=== PATIENT | female | born 1965 | race Caucasian/White ===

== ENCOUNTER → 2020-04-18 13:38 | Outpatient (CLI) | payer OTHER, SELFPAY ==
--- NOTE | ~2020-04-18 | MM_ITS ---
EXAMINATION: MM screening leon BI w yen HISTORY: Screening TECHNIQUE: Craniocaudal and mediolateral oblique 3-D tomosynthesis images were obtained and synthetic 2-D images were generated. CAD analysis was submitted and interpreted. COMPARISON: Comparison to multiple prior studies sequentially, with oldest reviewed study dated 01/23. BREAST PARENCHYMAL COMPOSITION: The breasts are heterogeneously dense, which may obscure small masses . FINDINGS: There is no evidence of suspicious mass, calcification, or architectural distortion to sugg est malignancy in either breast. There has been no suspicious interval change. IMPRESSION: 1. No mammographic evidence of malignancy. 2. Recommend routine screening mammography in one year. BI-RADS Category 1: Negative Reviewed, dictated and finalized at location A.
== END ==
PROVIDERS: PCP Emergency Medicine; Visit Provider Obstetrics & Gynecology
DX: Z12.31 Encounter for screening mammogram for malignant neoplasm of breast (principal)
CPT/HCPCS: 77063; 77067

== ENCOUNTER 2020-06-18 06:54 | Outpatient (NON) | payer OTHER, SELFPAY ==
[2020-06-19 16:06] LABS: SARS-CoV-2 RNA PCR Negative
== END 2020-06-18 06:55 ==
PROVIDERS: PCP Emergency Medicine; Visit Provider Emergency Medicine
DX: J02.9 Acute pharyngitis, unspecified (principal); R68.83 Chills (without fever); Z20.828 Contact with and (suspected) exposure to other viral communicable diseases
CPT/HCPCS: 87635; C9803; U0003

== ENCOUNTER → 2020-11-24 09:15 | Outpatient (CLI) | payer OTHER, SELFPAY ==
[2020-11-24 18:48] LABS: SARS-CoV-2 RNA PCR Negative
== END ==
PROVIDERS: PCP Emergency Medicine; Visit Provider Emergency Medicine
DX: R05 Cough (principal); R50.9 Fever, unspecified; R51.9 Headache, unspecified; R52 Pain, unspecified; Z20.822 Contact with and (suspected) exposure to COVID-19
CPT/HCPCS: C9803; U0003; U0005

== ENCOUNTER → 2021-04-20 12:13 | Outpatient (CLI) | payer OTHER, SELFPAY ==
--- NOTE | ~2021-04-20 | DEXA_ITS ---
Bone Density Report Name: Kecia Baca Age: 56 Sex: Female Ethnicity: White Date of : 1965 Indication: postmenopausal; screening for osteoporosis; Referring Provider: Anam, Sybil Cole Study: Bone densitometry was performed. Exam Date: April 20, 2021 Accession number: [id number] Bone Density: Region BMD T-score Z-score Classification AP Spine (L1-L4) 0.901 -1.3 0.0 Osteopenia Femoral Neck (Left) 0.575 -2.5 -1.3 Osteoporosis Total Hip (Left) 0.712 -1.9 -1.0 Osteopenia Femoral Neck (Right) 0.583 -2.4 -1.2 Osteopenia Total Hip (Right) 0.716 -1.9 -1.0 Osteopenia Total Hip Mean 0.714 -1.9 -1.0 Osteopenia World Health Organization criteria for BMD impression classify patients as: Normal (T-score at or above -1.0), Osteopenia (T-score between -1.0 and -2.5), or Osteoporosis (T-score at or below -2.5). 10-year Fracture Risk: FRAX not reported because: Some T-score for Spine Total or Hip Total or Femoral Neck at or below -2.5 Clinical Information Provided by Patient: Patient maximum height was 65.0 Menopause Age: 51 Drinks caffeinated beverages Onset of menses at age 11 Number of children 3 Impression: The patient has osteoporosis, based on the Left Femoral Neck T-score. Discussion: INCREASED RISK OF FRACTURE. BONE DENSITY IS UNDESIRABLY LOW AT ONE OR MORE SKELETAL SITES, CONSISTENT WITH POSTMENOPAUSAL OSTEOPOROSIS. This patient's lowest T-score meets the World Health Organization's (WHO) criteria for osteoporosis at one or more sites (T-score -2.5 or below). In untreated patients, the risk of osteoporotic fracture increases approximately two-fold for each 1.0 SD decrease in T-score. Low bone density is not the only risk factor for fracture; also consider factors such as patient's age, frailty or poor health, risk of falling, risk of injury, previous osteoporotic fracture, family history of osteoporosis, cigarette smoking, low body weight, etc. Not everyone with low bone mineral density has osteoporosis; osteomalacia and other metabolic bone disorders should also be considered. Patients who have osteoporosis should be evaluated for specific diseases and conditions (secondary causes) that may cause or contribute to bone loss. The [place] [employer] of Clinical Endocrinologists (AACE) and National Osteoporosis Foundation (NOF) recommend pharmacologic intervention for all postmenopausal women whose T-score is in this range. The patient should follow a healthful lifestyle (good nutrition with adequate calcium and vitamin D, and appropriate weight-bearing exercise). Follow-Up: Consider a repeat BMD and Vertebral Fracture Assessment (VFA) exam in 2 years or sooner if medically necessary, to reassess this patient's status. Reported by: IRMA on 04/20/2021 1:01:00 PM.
--- NOTE | ~2021-04-20 | MM_ITS ---
EXAMINATION: MM screening leon BI w yen HISTORY: Screening TECHNIQUE: Craniocaudal and mediolateral oblique 3-D tomosynthesis images were obtained and synthetic 2-D images were generated. CAD analysis was submitted and interpreted. COMPARISON: Comparison to multiple prior studies sequentially, with oldest reviewed study dated 12/2014. BREAST PARENCHYMAL COMPOSITION: The breasts are heterogenously dense, which may obscure small masses FINDINGS: There is focal asymmetry in the upper outer quadrant of the right breast, middle third. The left breast is stable without evidence for malignancy. IMPRESSION: 1. Subtle asymmetry upper outer quadrant of the right breast. 2. Additional mammographic views and possible breast ultrasound are recommended. BI-RADS Category 0: Incomplete: Needs additional imaging evaluation. Reviewed, dictated and finalized at location A. IMPRESSION: 1. Subtle asymmetry upper outer quadrant of the right breast. 2. Additional mammographic views and possible breast ultrasound are recommended . BI-RADS Category 0: Incomplete: Needs additional imaging evaluation.
== END ==
PROVIDERS: PCP Emergency Medicine; Visit Provider Nurse Practitioner Obstetrics & Gynecology
DX: Z12.31 Encounter for screening mammogram for malignant neoplasm of breast (principal); Z78.0 Asymptomatic menopausal state; M85.89 Other specified disorders of bone density and structure, multiple sites; M81.0 Age-related osteoporosis without current pathological fracture; R92.8 Other abnormal and inconclusive findings on diagnostic imaging of breast
CPT/HCPCS: 77063; 77067; 77080

== ENCOUNTER → 2021-05-15 09:13 | Outpatient (CLI) | payer OTHER, SELFPAY ==
--- NOTE | ~2021-05-15 | MMUS_ITS ---
EXAMINATION: MM diagnostic leon RT w yen, US breast RT complete HISTORY: Follow-up right breast asymmetry TECHNIQUE: Additional 3-D tomosynthesis images of the right breast were performed and synthetic 2-D i mages were generated. CAD analysis was submitted and interpreted. High resolution complete right angelo st ultrasound was performed. COMPARISON: Comparison to multiple prior studies sequentially, with oldest reviewed study dated 07/30. BREAST PARENCHYMAL COMPOSITION: The breasts are heterogenously dense, which may obscure small masses. FINDINGS: MAMMOGRAPHIC FINDINGS: There are no discrete masses, suspicious clustered calcifications or architectural distortion in the right breast to suggest malignancy. ULTRASOUND: Complete bilateral US of all 4 quadrants of the breasts and retroareolar region was reviewed. At 12:0 0, 3 cm from the nipple, there is a 7 mm cyst. At 11:00, 4 cm from the nipple, there is a hypoechoic mass with slightly irregular margins and antiparallel configuration measuring 5 x 6 x 6 mm. No technology intern al vascularity or significant posterior features. IMPRESSION: 1. Slightly irregular hypoechoic right breast mass at 11:00, 4 cm from the nipple with antiparallel c onfiguration. 2. Ultrasound-guided right breast biopsy recommended. BI-RADS category 4, suspicious findings. Reviewed, dictated and finalized at location A. IMPRESSION: 1. Slightly irregular hypoechoic right breast mass at 11:00, 4 cm from the nipp le with antiparallel configuration. 2. Ultrasound-guided right breast biopsy recommended. BI-RADS category 4, suspicious findings.
== END ==
PROVIDERS: PCP Emergency Medicine; Visit Provider Nurse Practitioner Obstetrics & Gynecology
DX: R92.8 Other abnormal and inconclusive findings on diagnostic imaging of breast (principal)
CPT/HCPCS: 76641; 77061; 77065; G0279

== ENCOUNTER 2021-05-22 09:59 | Outpatient (CLI) | payer OTHER, SELFPAY ==
--- NOTE | ~2021-05-22 | MMUS_ITS ---
EXAMINATION: US GUIDED NEEDLE BIOPSY DATE: 05/22/2021 11:50 DIRECTOR OF EARLY CHILDHOOD INDICATION: 11:00 4 cm from nipple right breast mass. Recent ultrasound demonstrated a 14 mm hypoech oic solid lesion. TECHNIQUE AND FINDINGS: The risks and potential benefits of the procedure were discussed with the patient, and written inform ed consent was obtained. Timeout procedure was performed. After sterile preparation of the right angelo st, 1% lidocaine was utilized for local anesthesia. An initial unsuccessful attempt was made to aspirate the lesion. A 14G spring-loaded biopsy gun needle was advanced to the edge of the region of interest from a media l approach utilizing sonographic guidance. A total of three tissue core samples were obtained throug h the lesion. An Inrad tissue marker clip was then placed at the biopsy site. Hemostasis was achieve d. A sterile bandage was applied. The patient tolerated procedure well and there was no evidence of immediate complication. The patien t was given verbal instructions prior to departing from the department. A two view mammogram was perf ormed to document tissue marker clip placement, revealing a biopsy marker in the upper outer quadrant . The tissue samples were submitted to surgical pathology for histologic analysis. IMPRESSION: 1. Successful ultrasound guided biopsy of 11:00 4 cm from nipple right breast mass with biopsy marke r placement. Please refer to pathology report for histologic analysis. Reviewed, dictated and finalized at Location A. Reviewed, dictated and finalized at location A. CTOR OF EARLY CHILDHOOD IMPRESSION: 1. Successful ultrasound guided biopsy of 11:00 4 cm from nipple right breast mass with biopsy marker placement. Please refer to pathology report for histolo gic analysis.
== END 2021-05-22 10:00 | disposition home or self-care (01) ==
LOC: ANHIMG 10:05
PROVIDERS: PCP Emergency Medicine; Visit Provider Emergency Medicine
DX: N63.11 Unspecified lump in the right breast, upper outer quadrant (principal); N64.89 Other specified disorders of breast; R92.8 Other abnormal and inconclusive findings on diagnostic imaging of breast
CPT/HCPCS: 19083; 88305; 88342

== ENCOUNTER 2022-03-30 10:06 | Outpatient (CLI) | payer OTHER, SELFPAY ==
--- NOTE | ~2022-03-30 | XR_ITS ---
XR chest 2V 03/30/2022 10:27 Indication: Residual effects of Covid Procedure: PA and lateral views of the chest Comparison: No prior studies for comparison. Findings: There is a calcified granuloma in the left mid thorax. Heart size normal. No focal air spac e disease, pulmonary edema, pleural effusion or suspected pneumothorax. No acute osseous abnormality. Impression: 1: No acute cardiopulmonary disease. Reviewed, dictated and finalized at location A. Impression: 1: No acute cardiopulmonary disease.
== END 2022-03-30 10:07 | disposition home or self-care (01) ==
PROVIDERS: PCP Emergency Medicine; Visit Provider Emergency Medicine
DX: R09.89 Other specified symptoms and signs involving the circulatory and respiratory systems (principal)
CPT/HCPCS: 71046

== ENCOUNTER → 2022-04-29 14:26 | Outpatient (CLI) | payer OTHER, SELFPAY ==
--- NOTE | ~2022-04-29 | MM_ITS ---
EXAMINATION: MM screening leon BI w yen HISTORY: Screening TECHNIQUE: Craniocaudal and mediolateral oblique 3-D tomosynthesis images were obtained and synthetic 2-D images were generated. CAD analysis was submitted and interpreted. COMPARISON: Comparison to multiple prior studies sequentially, with oldest reviewed study dated 02/01. BREAST PARENCHYMAL COMPOSITION: The breasts are heterogeneously dense, which may obscure small masses . FINDINGS: There is no evidence of suspicious mass, calcification, or architectural distortion to sugg est malignancy in either breast. There has been no suspicious interval change. IMPRESSION: 1. No mammographic evidence of malignancy. 2. Recommend routine screening mammography in one year. BI-RADS Category 1: Negative Reviewed, dictated and finalized at location A.
== END ==
PROVIDERS: PCP Emergency Medicine; Visit Provider Nurse Practitioner Obstetrics & Gynecology
DX: Z12.31 Encounter for screening mammogram for malignant neoplasm of breast (principal)
CPT/HCPCS: 77063; 77067

== ENCOUNTER 2023-07-08 13:27 | Outpatient (CLI) | payer OTHER, SELFPAY ==
--- NOTE | ~2023-07-08 | DEXA_ITS ---
Bone Density Report Name: JENNIFER MEDELLIN Age: 58 Sex: Female Ethnicity: White Date of : 1965 Indication: postmenopausal; screening for osteoporosis; parental hip fracture; Referring Provider: VAL WHITAKER Study: Bone densitometry was performed. Exam Date: July 08, 2023 Accession number: [id number] Bone Density: Region BMD T-score Z-score Classification AP Spine(L1-L4) 0.914 -1.2 0.2 Osteopenia Femoral Neck (Left) 0.590 -2.3 -1.0 Osteopenia Total Hip (Left) 0.749 -1.6 -0.6 Osteopenia Femoral Neck (Right) 0.542 -2.8 -1.5 Osteoporosis Total Hip (Right) 0.724 -1.8 -0.8 Osteopenia Total Hip Mean 0.737 -1.7 -0.7 Osteopenia World Health Organization criteria for BMD impression classify patients as: Normal (T-score at or above -1.0), Osteopenia (T-score between -1.0 and -2.5), or Osteoporosis (T-score at or below -2.5). 10-year Fracture Risk: FRAX not reported because: Some T-score for Spine Total or Hip Total or Femoral Neck at or below -2.5 Clinical Information Provided by Patient: Parent has had a hip fracture Has used the following medications: Calcium Patient maximum height was 65.0 Menopause Age: 51 Drinks caffeinated beverages Onset of menses at age 10 Number of children 3 Impression: The patient has osteoporosis, based on the Right Femoral Neck T-score. The patient has risk factors, including: parental hip fracture. Discussion: INCREASED RISK OF FRACTURE. BONE DENSITY IS UNDESIRABLY LOW AT ONE OR MORE SKELETAL SITES, CONSISTENT WITH POSTMENOPAUSAL OSTEOPOROSIS. This patient's lowest T-score meets the World Health Organization's (WHO) criteria for osteoporosis at one or more sites (T-score -2.5 or below). In untreated patients, the risk of osteoporotic fracture increases approximately two-fold for each 1.0 SD decrease in T-score. Low bone density is not the only risk factor for fracture; also consider factors such as patient's age, frailty or poor health, risk of falling, risk of injury, previous osteoporotic fracture, family history of osteoporosis, cigarette smoking, low body weight, etc. Not everyone with low bone mineral density has osteoporosis; osteomalacia and other metabolic bone disorders should also be considered. Patients who have osteoporosis should be evaluated for specific diseases and conditions (secondary causes) that may cause or contribute to bone loss. The [place] Association of Clinical Endocrinologists (AACE) and National Osteoporosis Foundation (NOF) recommend pharmacologic intervention for all postmenopausal women whose T-score is in this range. The patient should follow a healthful lifestyle (good nutrition with adequate calcium and vitamin D, and appropriate weight-bearing exercise). Follow-Up: Consider a repeat BMD and Vertebral Fracture Assessment (VFA) exam in 2 years or sooner if medically necessary, to reassess this patient's status.
--- NOTE | ~2023-07-08 | MM_ITS ---
EXAMINATION: MM screening leon BI w yen HISTORY: Screening mammogram TECHNIQUE: Craniocaudal and mediolateral oblique 3-D tomosynthesis images were obtained and synthetic 2-D images were generated. CAD analysis was submitted and interpreted. COMPARISON: 04/29/2022 bilateral screening mammogram 05/22/2021 right ultrasound-guided breast biopsy 05/15/2021 diagnostic right mammogram and complete right breast ultrasound examination 04/20/2021 bilateral screening mammogram BREAST PARENCHYMAL COMPOSITION: The breasts are heterogeneously dense, which may obscure small masses . FINDINGS: Biopsy marker in the upper outer quadrant of the right breast; history of prior benign righ t breast biopsy. There is no evidence of suspicious mass, calcification, or architectural distortion to suggest malignancy in either breast. There has been no suspicious interval change. IMPRESSION: 1. No mammographic evidence of malignancy. 2. Recommend routine screening mammography in one year. BI-RADS Category 1: Negative Reviewed, dictated and finalized at location A. UNITY RELATIONS REPRESENTATIVE
== END 2023-07-08 13:28 | disposition home or self-care (01) ==
PROVIDERS: PCP Family Medicine; Visit Provider Family Medicine
DX: Z12.31 Encounter for screening mammogram for malignant neoplasm of breast (principal); Z78.0 Asymptomatic menopausal state; M85.89 Other specified disorders of bone density and structure, multiple sites; M81.0 Age-related osteoporosis without current pathological fracture
CPT/HCPCS: 77063; 77067; 77080

== ENCOUNTER 2023-07-21 06:14 | Day surgery (SDC) | payer OTHER, SELFPAY ==
[2023-06-07 11:12] VITALS: BMI 25.7
[2023-07-06 09:14] VITALS: BMI 54.8
[2023-07-21] MEDS: LACTATED RINGERS 1,000 ML 150 ML IV CONT (06:50)
[2023-07-21 06:52] VITALS: BP 130/74; PULSE 90; RESP 14; TEMP 36.6; O2SAT 100
--- NOTE | 2023-07-21 07:23 | PM.HPGS ---
History of Present Illness History of Present Illness Consent: Risks, benefits, and alternatives have been discussed and questions answered. Patient agrees to proceed with procedure. Chief complaint: Neoplasm Screening Narrative: Kecia Baca is a 58 year old female presents for screening colonoscopy. Patient's current weight appetite and bowel movements are normal. Patient denies abdominal pain. She has had no bleeding. Family history noncontributory. Review of Systems Review of Systems: Review of systems noncontributory. [facility] Past Medical History Medical History Fatigue Family History Family History Father Diabetes mellitus Family history of malignant melanoma Family history of lung cancer Mother Hypertension Family history of malignant neoplasm, Onset Age: 54 Sibling Hypertension Social History Social History (Updated 05/23/23 @ 09:56 by Shauna Harley MA) Smoking status: Never smoker Alcohol intake: current Alcohol use details: once every 2 weeks Substance use: never Lack of Transportation: No Lack of Food: Never True Current Housing: I Have Housing Concerned About Future Housing: No Difficulty Paying Gas/Electric Bills: No Difficulty Paying for Meds: No Currently Unemployed: No Education: Bachelor's Degree Difficulty w/ Childcare or Family Care: No Living arrangements: with family Occupation/Education: retired Gender identity (if verbalized by the patient): Female Agree to blood products: Yes Meds Home Medications and Allergies Home Medications Medication Instructions Recorded Confirmed Type estradiol cream 1gm 1 g topical WEEKLY 05/23/23 07/21/23 History alendronate 70 mg tablet 70 mg PO WEEKLY #14 tabs 07/11/23 07/21/23 Rx Allergies Allergy/AdvReac Type Severity Reaction Status Date / Time No Known Allergies Allergy Verified 07/21/23 06:33 Vital Signs Vital Signs - 24 hr 07/21/23 06:52 Temperature 97.8 F Pulse Rate 90 Respiratory Rate 14 Blood Pressure 130/74 Pulse Oximetry 100 Oxygen Delivery Room Air Exam Narrative: Physical exam reveals patient to be alert. Vital signs stable. HEENT exam is unremarkable. Patient is anicteric. Lungs are clear to auscultation and percussion. Heart is without murmur or extra sounds. Abdomen bowel sounds are present soft nontender with no organomegaly. Digital external rectal exam is normal. Assessment and Plan Assessment and plan (1) Colon cancer screening: Code(s): Z12.11 - Encounter for screening for malignant neoplasm of colon Status: Acute Assessment and Plan: Patient presents for screening colonoscopy. She appears to be at average risk for colon polyps.
--- NOTE | 2023-07-21 07:28 | WPDANESEPPF ---
Anes - Initial Pre Proc Eval Procedure: Operation Date: 07/21/23 08:00 Proposed Procedures p Screening Colonoscopy - Abdirahman Zuñiga MD Date/Time: 07/21/23 07:28 Surgeon: Abdirahman Zuñiga MD Pre Op Diagnosis: Neoplasm Screening Patient Data Age: 58 Gender: F Height: 1.63 m Weight: 65.8 kg Last Vital Signs Temp 36.6 C 07/21/23 06:52 Pulse 90 07/21/23 06:52 Resp 14 07/21/23 06:52 BP 130/74 07/21/23 06:52 Pulse Ox 100 07/21/23 06:52 O2 Del Method Room Air 07/21/23 06:52 Allergies Allergy/AdvReac Type Severity Reaction Status Date / Time No Known Allergies Allergy Verified 07/21/23 06:33 Home Medications Medication Instructions Recorded Confirmed Type estradiol cream 1gm 1 g topical WEEKLY 05/23/23 07/21/23 History alendronate 70 mg tablet 70 mg PO WEEKLY #14 tabs 07/11/23 07/21/23 Rx Patient hx anesthesia problems: none Family hx anesthesia problems: none Results Review: All pre-operative results and documents have been reviewed as part of the pre-operative evaluation. [facility] Past Medical History Medical History Fatigue Surgical History Surgical History H/O colonoscopy Family History Family History Father Diabetes mellitus Family history of malignant melanoma Family history of lung cancer Mother Hypertension Family history of malignant neoplasm, Onset Age: 54 Sibling Hypertension Social History Social History Smoking status: Never smoker Alcohol intake: current Alcohol use details: once every 2 weeks Substance use: never Lack of Transportation: No Lack of Food: Never True Current Housing: I Have Housing Concerned About Future Housing: No Difficulty Paying Gas/Electric Bills: No Difficulty Paying for Meds: No Currently Unemployed: No Education: Bachelor's Degree Difficulty w/ Childcare or Family Care: No Living arrangements: with family Occupation/Education: retired Gender identity (if verbalized by the patient): Female Agree to blood products: Yes Anes - Eval Final PreProcedure Day of Procedure 07/21/23 07:28 Patient weight: normal Heart: regular rate and rhythm Lungs: clear to auscultation Airway: Mallampati scale class II Neurological: alert and oriented Last oral intake: >/= 8 hours ASA classification: II Emergent: no Anesthetic plan: proceed Anesthesia type and monitoring: general GIVS and standard monitoring Results Review: All pre-operative results and documents have been reviewed as part of the pre-operative evaluation. Informed Consent: The patient's anesthetic plan and its attendant risks and benefits were discussed with the patient/family/POA. Questions were solicited and answers provided to the satisfaction of the patient/family/POA.
[2023-07-21 08:17] VITALS: BP 104/57; PULSE 75; RESP 16; O2SAT 99
[2023-07-21 08:27] VITALS: BP 107/61; PULSE 66; RESP 18; O2SAT 100
[2023-07-21 08:37] VITALS: BP 108/52; PULSE 69; RESP 18; O2SAT 100
--- NOTE | 2023-07-21 09:02 | WPDANESPN ---
Anes - Prog Note Post-Op Date/Time: 07/21/23 09:02 Cardiovascular status: normal Respiratory status: normal Airway patency: baseline Mental status: baseline Post-Op hydration status: normal Vital Signs: Last Vital Signs Temp 36.6 C 07/21/23 06:52 Pulse 69 07/21/23 08:37 Resp 18 07/21/23 08:37 BP 108/52 L 07/21/23 08:37 Pulse Ox 100 07/21/23 08:37 O2 Del Method Room Air 07/21/23 08:37 Pain Score (VAS): 0/10 I/O: Intake & Output 07/20/23 07/21/23 07/21/23 23:59 07:59 15:59 Intake Total 700 Balance 700 Patient Feedback: Patient satisfied with anesthetic care.
== END 2023-07-21 08:46 | disposition home or self-care (01) ==
PROVIDERS: PCP Family Medicine; Visit Provider Internal Medicine Gastroenterology
PROC: 0DJD8ZZ Inspection of Lower Intestinal Tract, Via Natural or Artificial Opening Endoscopic (ICD-10-PCS; CPT 45378; principal; 2023-07-21 08:00)
DX: Z12.11 Encounter for screening for malignant neoplasm of colon (principal); K64.8 Other hemorrhoids
CPT/HCPCS: 45378

== ENCOUNTER 2024-08-14 08:51 | Outpatient (CLI) | payer BC, SELFPAY ==
--- NOTE | ~2024-08-14 | MM_ITS ---
EXAMINATION: MM screening leon BI w yen HISTORY: Screening TECHNIQUE: Craniocaudal and mediolateral oblique 3-D tomosynthesis images were obtained and synthetic 2-D images were generated. CAD analysis was submitted and interpreted. COMPARISON: Comparison to multiple prior studies sequentially, with oldest reviewed study dated 03/2020. BREAST PARENCHYMAL COMPOSITION: Dense: The breasts are heterogeneously dense, which may obscure small masses FINDINGS: There is no evidence of suspicious mass, calcification, or architectural distortion to sugg est malignancy in either breast. There has been no suspicious interval change. IMPRESSION: 1. No mammographic evidence of malignancy. 2. Recommend routine screening mammography in one year. BI-RADS Category 1: Negative Reviewed, dictated and finalized at location B. ONAL MARKETING DIRECTOR
--- OUTSIDE RECORDS SUMMARY | 2024-08-14 09:13 | XMS_ITS | Clinical Summary ---
Author Organization [facility] Address [address] [place] [id number] Care Team Providers Care Tumbler Dyeing Machine Operator Name Role Phone Marco Connor MD Primary Care Provider [phone] Allergies No known active allergies Medications alendronate (FOSAMAX) 10 mg tablet 4 Active estradioL (ESTRACE) 0.01 % (0.1 mg/gram) vaginal cream INSERT 1 GM VAGINALLY THREE DAYS A WEEK FOR MAINTANENCE 1 Active multivitamin with minerals tablet Active phenazopyridine (PYRIDIUM) 100 mg tablet Take 1 tablet 3 times a day by oral route for 5 days. Active azithromycin (ZITHROMAX) 250 mg tabletIndication s:Upper respiratory tract infection, unspecified type Take two tabs first day, then one tab daily x 4 days 6 tablet 4 Active Active Problems Problem Noted Date Diagnosed Date Abnormal mammogram 06/16/2021 Encounters Date Type Department Care Team Description 05/14/2024 11:30 AM PATIENT CASE MANAGER Office Visit [facility] Care at [address] [place] [id number] Kasandra Ferguson NP Upper respiratory tract infection, unspecified type (Primary Dx); Sore throat from Last 3 Months Social History Tobacco Use Types Packs/Day Years Used Date Smoking Tobacco: Never Tobacco Cessation:Counseling Given: Not Answered Comments Unknown Sex and Gender Information Value Date Recorded Sex Assigned at Not on file Legal Sex Female 3:58 PM PATIENT CASE MANAGER Gender Identity Female 06/15/2021 6:36 PM PATIENT CASE MANAGER Sexual Orientation Straight 06/15/2021 6: 36 PM PATIENT CASE MANAGER Obstetrics History Last Filed Vital Signs Vital Sign Reading Time Taken Comments Blood Pressure 120/74 05/14/2024 11:21 AM PATIENT CASE MANAGER Pulse 96 05/14/2024 11:21 AM PATIENT CASE MANAGER Temperature 37 ??C (98.6 ??F) 05/14/2024 11:21 AM PATIENT CASE MANAGER Respiratory Rate 18 02/12/2024 9:16 AM CDT Oxygen Saturation 97% 05/14/2024 11:21 AM PATIENT CASE MANAGER Inhaled Oxygen Concentration - - Weight 67.1 kg (148 lb) 05/14/2024 11:21 AM PATIENT CASE MANAGER Height 165.1 cm (5' 5 ) 05/14/2024 11:21 AM PATIENT CASE MANAGER Body Mass Index 24.63 05/14/2024 11:21 AM PATIENT CASE MANAGER Plan of Treatment Health Maintenance Due Date Last Done Comments Cervical Cancer Screening 1965 Colon Cancer Screening-Colonoscopy 1965 Depression Screening 1965 Hepatitis C Screening 1965 DTaP/Tdap/Td Vaccine (1 - Tdap) 1974 Hepatitis B Screening 1981 Regular Well Visit/Exam 18-64 1981 Zoster Vaccine (1 of 2) 2013 Breast Cancer Screening-Mammogram 04/29/2023 04/29/2022, 04/20/2021 Covid-19 Vaccine (4 - 2023-2 5 season) 2024 05/28/2021, 09/16/2020, 08/14/2020 Influenza Vaccine (#1) 2024 , 05/01/2020, 04/24/2019 Pneumococcal vaccine <65 Aged Out No longer eligible based on patient's age to complete this topic Procedures Procedure Name Priority Date/Time Associated Diagnosis Comments POC INFLUENZA A/B, COVID-19 ANTIGEN Routine 05/14/2024 11:48 AM PATIENT CASE MANAGER Upper respiratory tract infection, unspecified type POCT RAPID STREP Routine 05/14/2024 11:3 8 AM PATIENT CASE MANAGER Sore throat from Last 3 Months Results * POC Influenza A/B, COVID-19 antigen (05/14/2024 11:48 AM PATIENT CASE MANAGER) Pathologist [facility] Influenza A Ag, POC Negative Negative [facility] Influenza B Ag, POC Negative Negative [facility] COVID-19 Ag POC Presumptive Negative Presumptive Negative, Invalid [facility] Nasal 05/14/2024 11:4 8 AM PATIENT CASE MANAGER Kasandra Ferguson DE IONIZER OPERATOR POINT OF CARE TEST ORDERABLES Fi nal Result [facility] [address] [place] [id number], [facility] * POCT rapid strep A (05/14/2024 11:38 AM PATIENT CASE MANAGER) Rapid Strep A, POC Negative Negative Swab 05/14/2024 11:3 8 AM PATIENT CASE MANAGER Kasandra Ferguson DE IONIZER OPERATOR POINT OF CARE TEST ORDERABLES Fi nal Result from Last 3 Months Insurance [facility] CHOICE PLUS [facility] CHOICE PLUS Care Teams Tumbler Dyeing Machine Operator Relationship Specialty Start Date End Date Marco Connor MD PCP - General Family Practice 02/12/24
--- OUTSIDE RECORDS SUMMARY | 2024-08-14 09:13 | XMS_ITS | Clinical Summary ---
Author Organization [facility] [employer] Address [address] [place] [address] Care Team Providers Care Sighter Name Role Phone Unavailable Primary Care Provider Unavailabl e Source Comments [facility] [employer],non-owned Affiliates and Associated Physician Practices is amultiple site organization consisting of ambulatory clinics and hospital sitesin [place], [place], [place] and [place]. This disclosure is being madepursuant to the Care Everywhere program and may not contain all information available regarding this patient. Last updated 18.[employer] Allergies No known active allergies Medications * Be aware that medications may not be up to date on this document. Alwaysverify current medications with the patient. Medication Sig Dispensed Refills Start Date End Date Status alendronate (Fosamax) 10 MG tablet 07/15/2023 Active estradiol (Estrace) 0.1 MG/GM vaginal cream INSERT 1 GM VAGINALLY THREE DAYS A WEEK FOR MAINTANENCE 10/31/2023 Active mupirocin (Bactroban) 2 % ointment 02/13/2024 Active Active Problems Problem Noted Date Diagnosed Date Abnormal mammogram 06/16/2021 Social History Tobacco Use Types Packs/Day Years Used Date Smoking Tobacco: Never Sex and Gender Information Value Date Recorded Sex Assigned at Not on file Gender Identity Not on file Sexual Orientation Not on file Last Filed Vital Signs Vital Sign Reading Time Taken Comments Blood Pressure 102/64 10/21/2016 1:58 PM CDT Pulse 81 10/21/2016 1:58 PM CDT Temperature 36.8 ??C (98.3 ??F) 10/21/2016 1:58 PM CD T Respiratory Rate 18 10/21/2016 1:58 PM CDT Oxygen Saturation 98% 10/21/2016 1:58 PM CDT Inhaled Oxygen Concentration - - Weight 59 kg (130 lb) 10/21/2016 1:58 PM CDT Height 165.1 cm (5' 5 ) 10/21/2016 1:58 PM CDT Body Mass Index 21.63 10/21/2016 1:58 PM CDT Plan of Treatment Health Maintenance Due Date Last Done Comments COLOGUARD (AGES 45-75) - COL ON CA SCREENING 1963 COLON MONITORING 1963 COLONOSCOPY - COLON CA SCREENING 1963 CT COLONOGRAPHY - COLON CA SCREENING 1965 Colorectal Cancer Screening 1963 FIT - COLON CA SCREENING 1963 FLEX SIG - COLON CA SCREENING 1963 LIPID TESTING 1965 MAMMOGRAM 1963 PAP SMEAR 1963 HIV SCREENING 1978 HEPATITIS C SCREENING 02/13/1981 DTAP/TDAP/TD VACCINES (1 - Tdap) 1982 PNEUMOCOCCAL VACCINE 50+ (1 of 1 - PCV) 2013 ZOSTER VACCINE (1 of 2) 2013 COVID-19 VACCINE ( - 2023-2 5 season) 2024 INFLUENZA VACCINE (#1) 2024 DEPRESSION SCREENING 07/11/2024 Respiratory Syncytial Virus (RSV) Vaccine Pt: or over 60 yrs (1 - 1-dose 75+ series) 2038 HEPATITIS B VACCINE Aged Out No longe r eligible based on patient's age to complete this topic HIB VACCINE Aged Out No longer eligi ble based on patient's age to complete this topic HPV VACCINE Aged Out No longer eligi ble based on patient's age to complete this topic MENINGOCOCCAL (Group B) VACCINE Aged Out No longer eligible based on patient's age to complete this topic MENINGOCOCCAL VACCINE Aged Out No ember kylie eligible based on patient's age to complete this topic
--- OUTSIDE RECORDS SUMMARY | 2024-08-14 09:13 | XMS_ITS | Referral Summary ---
Author Organization [facility] [employer] Address [address] [place] [address] Care Team Providers Care C Developer Name Role Phone Unavailable Primary Care Provider Unavailabl e Source Comments [facility] [employer],non-owned Affiliates and Associated Physician Practices is amultiple site organization consisting of ambulatory clinics and hospital sitesin [place], [place], [place] and [place]. This disclosure is being madepursuant to the Care Everywhere program and may not contain all information available regarding this patient. Last updated 18.[employer] Allergies No known active allergies Medications * [...] 10/21/2016 1:58 PM CDT Plan of Treatment Not on file Guarantor Name Account Type Relation to Patient Date of Phone Billing Address Kecia Baca Personal/Famil y Self 1965 [address] [place] [address] Kecia Baca Personal/Famil y Self 1965 [address] [place] [address]
--- OUTSIDE RECORDS SUMMARY | 2024-08-14 09:13 | XMS_ITS | Patient Health Summary ---
Author Organization [facility] [employer] Address [address] [place] [address] Care Team Providers Care Hydrogen Power Plant Engineer Name Role Phone Unavailable Primary Care Provider Unavailabl e Note from [facility],non-owned Affiliates and Associated Physician Practices is amultiple site organization consisting of ambulatory clinics and hospital sitesin [place], [place], [place] and [place]. This disclosure is being madepursuant to the Care Everywhere program and may not contain all information available regarding this patient. Last updated 18.[facility] Allergies No known active allergies Medications * Be aware that medications may not be up to date on this document. Alwaysverify current medications with the patient. * alendronate (Fosamax) 10 MG tablet(Started 07/15/2023) * estradiol (Estrace) 0.1 MG/GM vaginal cream(Started 10/31/2023) INSERT 1 GM VAGINALLY THREE DAYS A WEEK FOR MAINTANENCE * mupirocin (Bactroban) 2 % ointment(Started 02/13/2024) Active Problems Problem Noted Date Diagnosed Date [...] Mass Index 21.63 10/21/2016 1:58 PM CDT Procedures * [place] INTMD WND REPAIR TRUNK,ARM,LEG 7.6-12.5(Performed 02/21/2024) Performed for Melanoma of buttock (HCC) * [place] EXC SKIN MALIG 3.1-4CM TRUNK,ARM,LEG(Performed 02/21/2024) Performed for Melanoma of buttock (HCC) * DERMATOPATHOLOGY(Performed 02/21/2024) Performed for Melanoma of buttock (HCC) * DERMATOPATHOLOGY(Performed 02/07/2024) * DERMATOPATHOLOGY(Performed 11/13/2019) * DERMATOPATHOLOGY(Performed 12/14/2016) * STREP A SCREEN - POINT OF CARE (AMB) STL(Performed 10/21/2016) Performed for Acute sinusitis, recurrence not specified, unspecified location Results * [place] EXC SKIN MALIG 3.1-4CM TRUNK,ARM,LEG, [place] INTMD WND REPAIR TRUNK,ARM,LEG 7.6-12.5 (02/21/2024 3:43 PM CDT) Narrative Nicci Wallace MD - 02/21/2024 3:43 PM CDT Nicci Wallace MD ? 02/24/2024 ??3:34 PM Elliptical Excision with intermediate layered repair Date of Service: 02/21/2024 Tumor Type: Malignant Melanoma, superficial spreading Location: right lower buttock Derm-Path Pre-op Lesion Size: 1.1 x 1.9 cm Post-op Lesion Size with Margin: 3.1 x 2.9 cm Surgical Margins: 1.0 Repair Type: intermediate Repair Size: 9.5 cm Suture Material: 3-0 monocryl, 4-0 monocryl, 4-0 PDS Level of Defect: adipose Primary Surgeon: Nicci Wallace MD Scoreboard Operator: Delfino Gilliam MD INDICATIONS: The risks of bleeding, infection, discomfort, incomplete removal, and scar formation were explained to the patient. All questions were answered. After informed consent, confirmation of site and identity, and appropriate instructions, the patient underwent the procedure as follows: PROCEDURE: Excision With the patient in a supine position, the lesion was outlined with 1.0 cm margins measuring 3.1 x 2.9 cm. An ellipse was designed around the lesion to conform to relaxed skin tension lines in an effort to minimize scarring and deformity. The patient was then positioned on the table. The lesion and surrounding skin were prepped with chlorhexidine, draped, and anesthetized with 1% lidocaine with epinephrine 1:100,100 buffered with 1:10 sodium bicarbonate. Using a #15 blade the skin was excised along premarked lines. The resulting defect extended to adipose. Wound margins were undermined to limit functional deformity/impairment of adjacent structures. Bleeding vessels were controlled with ??monopolar electrocoagulation. The dermis and subcutaneous tissue were closed with buried vertical mattress sutures. Epidermal approximation was meticulously refined with subcuticular sutures, resulting in a linear closure with little to no wound tension. Blood loss was estimated to be less than 5cc. The area was coated with petrolatum and covered with a non-adherent dressing followed by gauze and tape. Postoperative instructions were reviewed per protocol. The patient left alert and fully oriented. The attending physician was present and always immediately available. No postoperative medications were prescribed. The patient will follow up with their primary stump blower. Delfino Gilliam MD [employer] MSDO Fellow, PGY5 A procedure was performed. I present for the manzano portion of the procedure and was always immediately available. Date of Service : 02/21/2024 Nicci Wallace MD Nicci Wallace MD PROCEDURE/MINOR SURG ICAL ORDERABLES * DERMATOPATHOLOGY (Specimen Count = 1) (02/21/2024 12:00 AM CDT) Only the most recent of4 resultswithin the time period is included. Case Report Dermatopathology Report ? Case: [id number] ? Authorizing Provider: ??Nicci Wallace MD ?Collected: ? 02/21/2024 12:00 AM ? Ordering Location: ? [facility] - ??Received: ?02/22/2024 11:16 AM ? Dermatology ? Pathologist: ? Odalis Floyd MD ? Specimen: ?Skin, right lower buttock ? 4 2:23 PM CDT DERMATOPATHOLOGY LABORATORY Final Diagnosis Specimen A. SKIN, right lower buttock: DERMAL SCAR RESIDUAL MELANOMA NOT IDENTIFIED (L90.5) 4 2:23 PM CDT DERMATOPATHOLOGY LABORATORY Clinical History Bx proven Melanoma 4 2:23 PM CDT DERMATOPATHOLOGY LABORATORY Gross Description Specimen A: Received is one formalin filled container labeled with the patient's name and designated right lower buttock.The specimen consists of an ellipse measuring [id number] mm and is oriented with the notch at the 12 o'clock position labeled on the requisition as notch. The 12 to 6 o'clock margin is inked green. The 6 o'clock to 12 o'clock margin is inked red. The 12 o'clock tip is submitted in cassette 1. The 6 o'clock tip is submitted in cassette 2. The remainder of the ellipse is serially sectioned and submitted in cassettes 3-18. Jar 0. 4 2:23 PM CDT DERMATOPATHOLOGY LABORATORY Microscopic Description Specimen A. SKIN, right lower buttock: There are fibroblasts and collagen bundles oriented parallel to the skin surface. There are elongated blood vessels, some of which are oriented perpendicular to the skin surface. No residual melanoma is identified. 4 2:23 PM CDT DERMATOPATHOLOGY LABORATORY Disclaimer An external and internal positive and negative controls are appropriate for the histochemical, immunohistochemical and immunofluorescence stain(s) in this case (if any), except where stated explicitly. The performance characteristics of the stain(s) cited in this report were developed and its performance characteristic determined by the Dermatopathology Laboratory at [facility], directed by Dr. Yuliana Wang. These tests need not be, and therefore are not, approved by the [place] Food and Drug Administration. The tests are used for clinical purposes. Billing Codes Specimen Charges Stain Charges 70893 1 4 2:23 PM CDT DERMATOPATHOLOGY LABORATORY Embedded Images 4 2:23 PM CDT DERMATOPATHOLOGY LABORATORY Pathology/Cytolog y TISSUE SPECIMEN FROM SKIN / Unknown 02/21/2024 02/22/2024 11:16 AM CDT Nicci Wallace MD LAB - PATHOLOGY/CYTO LOGY ORDERABLES DERMATOPATHOLOGY LABORATORY [facility] - Department of Dermatology [address] [phone] * STREP A SCREEN (10/21/2016 2:18 PM CDT) Strep A Rapid POCT Negative Negative Strep A Internal Control Present Lot # [id number] Expiration Date 04/06/18 Throat ENTIRE THROAT (SURFACE REGION OF NECK) / Unknown 10/21/2016 2:18 PM CDT Bubba Odonnell APRN-UPHOLSTERER INSIDE LAB - POINT OF CARE ORDERABLES
--- OUTSIDE RECORDS SUMMARY | 2024-08-14 09:13 | XMS_ITS | Data Portability ---
Author Organization [facility] Address [address] [place] [address] [place] [address] Care Team Providers Care Pipe Supervisor Name Role Phone JAVIER WEBB Primary Care Provider JULIANNE VAL Primary Care Provider Assessment Encounter Date Assessment Date Assessment LastModified by Organization Details LastModified Time 02/06/2021 02/06/2021 Annual gynecological exam performed. Patient will come back in a year unless there are new symptoms. Not available 02/06/2021 10:58:40 02/09/2022 02/09/2022 Annual gynecological exam performed. Patient will come back in a year unless there are new symptoms. Not available 02/09/2022 09:41:43 02/16/2023 02/16/2023 Annual gynecological exam performed. Patient will come back in a year unless there are new symptoms. [email or web address] Not available 02/16/2023 09:15:32 05/03/2024 05/03/2024 Annual gynecological exam performed. Patient will come back in a year unless there are new symptoms. [email or web address] Not available 05/03/2024 11:14:01 Plan of Treatment Reminders Order Date Submit Date Provider Last Modified By Organization Details Last Modified Time Details Appointments None recorded. Lab urinalysis, dipstick 2022 023 [email or web address] [facility], [address], [place], [address], 13:43:39 pap, IG + HR HPV - HPV regardless but if HPV is positive need subtyping 16,18/45 2023 024 [facility] (Lab), [address], [place], [address], 4 15:11:43 Referral None recorded. Procedures None recorded. Surgeries None recorded. Imaging MAMMO, screening, bilateral 2022 023 [email or web address] [facility], [address], [place], [address], 3 10:09:29 Medication Orders Estrace 0.01% (0.1 mg/gram) vaginal cream 2020 021 [id number], [address], [place], [id number], 1 11:28:24 estradiol 0.01% (0.1 mg/gram) vaginal cream 2022 023 [facility] #[id number], [address], [place], [id number], 3 09:23:21 estradiol 0.01% (0.1 mg/gram) vaginal cream [email or web address] [place] [address] [id number], [address], [place], [id number], 4 11:27:39 Patient TargetsNo targets recorded. Patient InstructionsNo instructions recorded. Reason for Referral None Reported. Results Created Date Observation Date Name Description Value Unit Range Abnormal Flag Note LastModifiedBy Organization Detail LastModifiedTime 02/07/20 21 02/06/2021 IMAGE GUIDE D PAP AND HPV REGAR DLESS image guided Pap, HPV regardless of Pap result SEE RESULT S BELOW CASE REPOR T: Cytol ogy Gynec ologi irineo Repor t Case: [id number] Autho vince viramontes Provi meir: Isaias Howard Colle cted: 02/06 1341 ASSET MANAGER Order ing Locat ion: [place] Patho loglinda Recei berry: 02/07 0425 First Scree n: Mariah Wu Speci men: Scree milo Pap - Image d, Cervi x STATE MENT OF ADEQU ACY: Satis facto ry for evalu ation Trans forma tion zone compo nent prese nt FINAL DIAGN OSIS: Negat deanna for Intra epith elial Lesio n or Brionna smith Elect skylar vick karena d by Mariah Wu on 021 at 8:43 PM ----- ----- ----- ----- ----- ----- ----- ----- ----- ----- ----- ----- ----- ----- ----- ----- ----- ---- HPV RESUL TS: HPV mRNA E6/E7 : No HPV mRNA Detec peggy NOTE: This high risk HPV mRNA assay detec ts fourt een high- risk HPV types (16, 18, 31, 33, 35, 39, 45, 51, 52, 56, 58, 59, 66, 68) witho ut diffe renti ation . CHART ABLE COMME NT: Note: This speci men was revie wed by a Cytot echno logis t and/o r Patho logis t (as indic ated in this repor t) after evalu ation using the Thinp rep Imagi ng Syste m. CLINI IRINEO INFOR MATIO N: Menst rual Statu s: LMP (if appli cable ): Clini irineo Histo ry/Pr eviou s Pap: Type of Neopl hattie (if appli cable ): Signi fican t Clini irineo Findi ngs: Other Histo ry: Hormo rancho (if appli cable ): PAP EDUCA JACKI L NOTE: The Pap Test is a scree milo test with an inher ent false negat deanna rate. Liqui d-bas e sampl ing may decre ase, but will not elimi jasper, false negat deanna resul ts. A negat deanna resul t does not precl ude the prese nce and/o r devel opmen t of disea se, since the prese nce of abnor mal cells in the sampl e depen ds on the locat ion of the lesio n and sampl ing techn ique. Deb nued regul ar scree milo is the best metho d of cance r preve ntion . If repor peggy cytol ogic findi ng do not corre late with physi irineo and/o r histo rical findi ngs, furth er inves tigat ion is recom anna d, as clini teresa warra nted. Not Available [facility] (Lab) [address], [place], [address], 02/09/2021 21:44:55 05/05/2005/05/2021 CBC W/DIF F WBC 6.1 10'3/ uL 3.6-10 .2 Not Available [facility] (Lab) [address], [place], [address], 05/06/2021 02:36:36 05/05/2005/05/2021 CBC W/DIF F RBC 4.60 10'6/ uL (based on docume nted legal sex) 4.10-5 .30 Not Available [facility] (Lab) [address], [place], [address], 05/06/2021 02:36:36 05/05/2005/05/2021 CBC W/DIF F HGB 14.1 g/dL (based on docume nted legal sex) 11.9-1 5.8 Not Available [facility] (Lab) [address], [place], [address], 05/06/2021 02:36:36 05/05/20 21 05/05/2021 CBC W/DIF F HCT 43.7 % (based on docume nted legal sex) 37.4-4 8.3 Not Available [facility] (Lab) [address], [place], [address], 05/06/2021 02:36:36 05/05/20 21 05/05/2021 CBC W/DIF F MCV 94.0 fL 82.0-9 9.0 Not Available [facility] (Lab) [address], [place], [address], 05/06/2021 02:36:36 05/05/20 21 05/05/2021 CBC W/DIF F MCH 31.0 pg 27.0-3 3.0 Not Available [facility] (Lab) [address], [place], [address], 05/06/2021 02:36:36 05/05/20 21 05/05/2021 CBC W/DIF F MCHC 32.0 g/dL 32.0-3 6.0 Not Available [facility] (Lab) [address], [place], [address], 05/06/2021 02:36:36 05/05/20 21 05/05/2021 CBC W/DIF F RDW 13.0 % 11.0-1 5.0 Not Available [facility] (Lab) [address], [place], [address], 05/06/2021 02:36:36 05/05/20 21 05/05/2021 CBC W/DIF F plt 287 10'3/ uL 150-45 0 Not Available [facility] (Lab) [address], [place], [address], 05/06/2021 02:36:36 05/05/20 21 05/05/2021 CBC W/DIF F MPV 10.4 fL 9.8-12 .7 Not Available [facility] (Lab) [address], [place], [address], 05/06/2021 02:36:36 05/05/20 21 05/05/2021 CBC W/DIF F NRBC's 0.00 % 0 Not Available [facility] (Lab) [address] [facility], [place], [address], 05/06/2021 02:36:36 05/05/20 21 05/05/2021 CBC W/DIF F absolute NRBCs 0.0 10'3/ uL 0 Not Available [facility] (Lab) [address] [facility], [place], [address], 05/06/2021 02:36:36 05/05/20 21 05/05/2021 CBC W/DIF F neutrophils 52.0 % 37.0-7 2.0 Not Available [facility] (Lab) [address] [facility], [place], [address], 05/06/2021 02:36:36 05/05/20 21 05/05/2021 CBC W/DIF F lymphocytes 37.0 % 16.0-4 8.0 Not Available [facility] (Lab) [address] [facility], [place], [address], 05/06/2021 02:36:36 05/05/20 21 05/05/2021 CBC W/DIF F monocytes 8.0 % 4.0-14 .0 Not Available [facility] (Lab) [address] [facility], [place], [address], 05/06/2021 02:36:36 05/05/20 21 05/05/2021 CBC W/DIF F eosinophils 2.0 % 0.0-9. 0 Not Available [facility] (Lab) [address] [facility], [place], [address], 05/06/2021 02:36:36 05/05/20 21 05/05/2021 CBC W/DIF F basophils 1.0 % 0.0-2. 0 Not Available [facility] (Lab) [address] [facility], [place], [address], 05/06/2021 02:36:36 05/05/20 21 05/05/2021 CBC W/DIF F immature granulocytes 0.0 % no define d refere nce range Not Available [facility] (Lab) [address] [facility], [place], [address], 05/06/2021 02:36:36 05/05/20 21 05/05/2021 CBC W/DIF F absolute neutrophils 3.2 10'3/ uL 1.1-6. 0 Not Available [facility] (Lab) [address] [facility], [place], [address], 05/06/2021 02:36:36 05/05/20 21 05/05/2021 CBC W/DIF F absolute lymphocytes 2.3 10'3/ uL 0.7-3. 4 Not Available [facility] (Lab) [address] [facility], [place], [address], 05/06/2021 02:36:36 05/05/20 21 05/05/2021 CBC W/DIF F absolute monocytes 0.5 10'3/ uL 0.3-1. 0 Not Available [facility] (Lab) [address] [facility], [place], [address], 05/06/2021 02:36:36 05/05/20 21 05/05/2021 CBC W/DIF F absolute eosinophils 0.1 10'3/ uL 0.0-0. 6 Not Available [facility] (Lab) [address] [facility], [place], [address], 05/06/2021 02:36:36 05/05/20 21 05/05/2021 CBC W/DIF F absolute basophils 0.1 10'3/ uL 0.0-0. 1 Not Available [facility] (Lab) [address] [facility], [place], [address], 05/06/2021 02:36:36 05/05/20 21 05/05/2021 CBC W/DIF F absolute immature granulocytes 0.00 10'3/ uL 0.00-0 .10 05/06 12:31 AM: P indic ates parti al sanjeev ts on a panel have been relea sed. Addit ional resul ts will follo w. 05/06 12:31 AM: This resul t has been final verif ied. No addit ional or de la garza ed resul ts are expec peggy. Not Available [facility] (Lab) [address] [facility], [place], [address], 05/06/2021 02:36:36 05/05/20 21 05/05/2021 TSH, REFLE X FREE T4 TSH 2.44 uIU/m L 0.30-5 .33 Not Available [facility] (Lab) [address] [facility], [place], [address], 05/06/2021 02:36:36 05/05/2005/05/2021 PHOSP HORUS phosphorus 3.9 mg/dL 2.5-5. 0 Not Available [facility] (Lab) [address] [facility], [place], [address], 05/06/2021 02:36:36 05/05/20 21 05/05/2021 CMP(C OMPRE HENSI VE METAB OLIC PANEL ) sodium 140 mmol/ L 133-14 6 Not Available [facility] (Lab) [address] [facility], [place], [address], 05/06/2021 02:36:37 05/05/20 21 05/05/2021 CMP(C OMPRE HENSI VE METAB OLIC PANEL ) potassium 4.1 mmol/ L 3.5-5. 1 Not Available [facility] (Lab) [address] [facility], [place], [address], 05/06/2021 02:36:37 05/05/20 21 05/05/2021 CMP(C OMPRE HENSI VE METAB OLIC PANEL ) chloride 101 mmol/ L 98-107 Not Available [facility] (Lab) [address] [facility], [place], [address], 05/06/2021 02:36:37 05/05/20 21 05/05/2021 CMP(C OMPRE HENSI VE METAB OLIC PANEL ) carbon dioxide 31 mmol/ L 21-31 Not Available [facility] (Lab) [address] [facility], [place], [address], 05/06/2021 02:36:37 05/05/20 21 05/05/2021 CMP(C OMPRE HENSI VE METAB OLIC PANEL ) anion gap 8 mmol/ L 4-13 Not Available [facility] (Lab) [address] [facility], [place], [address], 05/06/2021 02:36:37 05/05/20 21 05/05/2021 CMP(C OMPRE HENSI VE METAB OLIC PANEL ) blood urea nitrogen 15 mg/dL 7-25 Not Available [facility] (Lab) [address] [facility], [place], [address], 05/06/2021 02:36:37 05/05/20 21 05/05/2021 CMP(C OMPRE HENSI VE METAB OLIC PANEL ) creatinine 0.88 mg/dL 0.60-1 .30 Not Available [facility] (Lab) [address] [facility], [place], [address], 05/06/2021 02:36:37 05/05/20 21 05/05/2021 CMP(C OMPRE HENSI VE METAB OLIC PANEL ) GFR () 80 mL/mi n/1.7 3_m2 60-300 Not Available [facility] (Lab) [address] [facility], [place], [address], 05/06/2021 02:36:37 05/05/20 21 05/05/2021 CMP(C OMPRE HENSI VE METAB OLIC PANEL ) GFR (others) 66 mL/mi n/1.7 3_m2 60-300 Not Available [facility] (Lab) [address] [facility], [place], [address], 05/06/2021 02:36:37 05/05/20 21 05/05/2021 CMP(C OMPRE HENSI VE METAB OLIC PANEL ) calcium 10.1 mg/dL 8.3-10 .5 Not Available [facility] (Lab) [address] [facility], [place], [address], 05/06/2021 02:36:37 05/05/20 21 05/05/2021 CMP(C OMPRE HENSI VE METAB OLIC PANEL ) glucose 91 mg/dL 70-100 Not Available [facility] (Lab) [address] [facility], [place], [address], 05/06/2021 02:36:37 05/05/20 21 05/05/2021 CMP(C OMPRE HENSI VE METAB OLIC PANEL ) protein, total 7.0 g/dL 6.4-8. 3 Not Available [facility] (Lab) [address] [facility], [place], [address], 05/06/2021 02:36:37 05/05/20 21 05/05/2021 CMP(C OMPRE HENSI VE METAB OLIC PANEL ) albumin 4.4 g/dL 3.5-5. 0 Not Available [facility] (Lab) [address] [facility], [place], [address], 05/06/2021 02:36:37 05/05/20 21 05/05/2021 CMP(C OMPRE HENSI VE METAB OLIC PANEL ) ALT 66 units /L 9-43 high Not Available [facility] (Lab) [address] [facility], [place], [address], 05/06/2021 02:36:37 05/05/20 21 05/05/2021 CMP(C OMPRE HENSI VE METAB OLIC PANEL ) alkaline phosphatase 71 units /L 34-104 Not Available [facility] (Lab) [address] [facility], [place], [address], 05/06/2021 02:36:37 05/05/20 21 05/05/2021 CMP(C OMPRE HENSI VE METAB OLIC PANEL ) AST 28 units /L 13-39 Not Available [facility] (Lab) [address] [facility], [place], [address], 05/06/2021 02:36:37 05/05/20 21 05/05/2021 CMP(C OMPRE HENSI VE METAB OLIC PANEL ) bilirubin, total 0.9 mg/dL 0.2-1. 2 GFR([place] Amer[place]) is repor peggy as 21% great er than GFR(O ther) . The use of race in kidne y funct ion estim ating equat ions is no longe r recom anna d and may resul t in overe stima tion. In the near futur e an appro ach that disre gards race will be imple mente d. Not Available [facility] (Lab) [address] [facility], [place], [address], 05/06/2021 02:36:37 05/05/20 21 05/05/2021 VITAM IN D, 25-OH (TOTA L D2/D3 ) vitamin D, 25-hydroxy, total 38.9 NG/mL 30-80 NOTE: Defic iency : <20 ng/mL Insuf ficie ncy: 20-29 ng/mL Optim um Level : 30-80 ng/mL Possi ble Toxic ity: >80 ng/mL Most patie nts with toxic ity have level s >150 ng/mL . Not Available [facility] (Lab) [address] [facility], [place], [address], 05/06/2021 02:36:37 02/10/20 22 02/09/2022 IMAGE GUIDE D PAP AND HPV REGAR DLESS image guided Pap, HPV regardless of Pap result SEE RESULT S BELOW CASE REPOR T: Cytol ogy Gynec ologi irineo Repor t Case: [id number] Autho vince g Provi meir: Isaias Howard Colle cted: 02/09 1419 ASSET MANAGER Order ing Locat ion: [place] Patho logy Recei berry: 02/10 0233 First Scree n: Bekah Campo ed, CT Rescr een: Ebenezer Bonilla, CT Speci men: Scree milo Pap - Image d, Cervi x STATE MENT OF ADEQU ACY: Satis facto ry for evalu ation Trans forma tion zone compo nent absen t The absen ce of an endoc ervic al compo nent was confi rmed by an addit iongela solis ner. FINAL DIAGN OSIS: Negat deanna for Intra epith elial Leserik n or Raycamille sarah (NIL) . Funga l organ isms morph ologi teresa consi stent with Melissa da spp. Elect hoseamariela thurston d by Ebenezer Bonilla, CT on 022 at 9:28 AM ----- ----- ----- ----- ----- ----- ----- ----- ----- ----- ----- ----- ----- ----- ----- ----- ----- ---- HPV RESUL TS: HPV mRNA E6/E7 : No HPV mRNA Detec peggy NOTE: This high risk HPV mRNA assay detec ts fourt een high- risk HPV types (16, 18, 31, 33, 35, 39, 45, 51, 52, 56, 58, 59, 66, 68) witho ut diffe renti ation . COMME NT: Note: This speci men was revie wed by a Cytot echno logis t and/o r Patho logis t (as indic ated in this repor t) after evalu ation using the Thinp rep Imagi ng Syste m. CLINI IRINEO INFOR MATIO N: Menst rual Statu s: LMP (if appli cable ): Clini irineo Histo ry/Pr eviou s Pap: Type of Neopl hattie (if appli cable ): Signi fican t Clini irineo Findi ngs: Other Histo ry: Hormo rancho (if appli cable ): PAP EDUCA JACKI L NOTE: The Pap Test is a scree milo test with an inher ent false negat deanna rate. Liqui d-bas ed sampl ing may decre ase, but will not elimi jasper, false negat deanna resul ts. A negat deanna resul t does not precl ude the prese nce and/o r devel opmen t of disea se, since the prese nce of abnor mal cells in the sampl e depen ds on the locat ion of the lesio n and sampl ing techn ique. Deb nued regul ar scree milo is the best metho d of cance r preve ntion . If repor peggy cytol ogic findi ng do not corre late with physi irineo and/o r histo rical findi ngs, furth er inves tigat ion is recom anna d, as clini teresa sandoval nted. Not Available [facility] [address] [place], [address], 02/15/2022 10:30:22 02/17/20 23 02/16/2023 IMAGE GUIDE D PAP AND HPV REGAR DLESS image guided Pap, HPV regardless of Pap result SEE RESULT S BELOW CASE REPOR T: Cytol ogy Gynec ologi irineo Repor t Case: [id number] Autho vince viramontes Provi meir: Isaias Howard Colle cted: 02/16 1332 ASSET MANAGER Order ing Locat ion: [place] Patho logy Recei berry: 02/17 0622 First Scree n: Clifton Velez , CT Speci men: Rafia pedraza Pap - Image d, Cervi x STATE MENT OF ADEQU ACY: Satis facto ry for evalu ation Trans forma tion zone compo nent prese nt FINAL DIAGN OSIS: Negat deanna for Intra epith elial Jakob stover or Brionna smith (NIL) . Elect skylar vick karena d by Clifton Velez , CT on 2022 at 8:04 PM ----- ----- ----- ----- ----- ----- ----- ----- ----- ----- ----- ----- ----- ----- ----- ----- ----- ---- HPV RESUL TS: HPV mRNA E6/E7 : No HPV mRNA Detec peggy NOTE: This high risk HPV mRNA assay detec ts fourt een high- risk HPV types (16, 18, 31, 33, 35, 39, 45, 51, 52, 56, 58, 59, 66, 68) witho ut diffe renti ation . COMME NT: This speci men was revie wed by a Cytot echno logis t and/o r Patho logis t (as indic ated in this repor t) after evalu ation using the Thinp rep Imagi ng Syste m. CLINI IRINEO INFOR MATIO N: Menst rual Statu s: LMP (if appli cable ): Clini irineo Histo ry/Pr eviou s Pap: Type of Neopl hattie (if appli cable ): Signi fican t Clini irineo Findi ngs: Other Histo ry: Hormo rancho (if appli cable ): PAP EDUCA JACKI L NOTE: The Pap Test is a scree milo test with an inher ent false negat deanna rate. Liqui d-bas ed sampl ing may decre ase, but will not elimi jasper, false negat deanna resul ts. A negat deanna resul t does not precl ude the prese nce and/o r devel opmen t of disea se, since the prese nce of abnor mal cells in the sampl e depen ds on the locat ion of the lesio n and sampl ing techn ique. Deb nued regul ar scree milo is the best metho d of cance r preve ntion . If repor peggy cytol ogic findi ng do not corre late with physi irineo and/o r histo rical findi ngs, furth er inves tigat ion is recom anna d, as clini teresa sandoval nted. Not Available [facility] (Lab) [address], [place], [address], 02/17/2023 21:10:24 05/17/20 23 05/17/2023 CULTU RE: URINE result report SEE RESULT S BELOW Test: Cultu re: Urine Speci men Sourc e: Urine Voide d Speci men Type: Urine Speci men Date: 2022 1:39 PM Resul t Date: 2022 11:41 AM Resul t Statu s: Final resul t Abnor mal: No Resul ting Lab: [facility] [address] [facility] [address] Tel: CULTU RE ----- ----- ----- --- Organ ism(s ) consi stent with uroge nital or skin levin . Repea t cultu re if sympt oms indic ate. Not Available [facility] (Lab) [address], [place], [address], 05/19/2023 12:45:25 05/17/20 23 05/17/2023 cultu re, urine Leukocytes +1 [facility] Available [facility] [address], [place], [address], 05/17/2023 19:42:08 05/17/20 23 05/17/2023 cultu re, urine Nitrite normal Not Available [facility] [address], [place], [address], 05/17/2023 19:42:08 05/17/20 23 05/17/2023 cultu re, urine Urobilinogen normal Not Available [facility] silvano [address], [place], [address], 05/17/2023 19:42:08 05/17/20 23 05/17/2023 cultu re, urine Protein trace Not Available [facility] [address], [place], [address], 05/17/2023 19:42:08 05/17/20 23 05/17/2023 cultu re, urine pH 8 Not Available [facility] [address], [place], [address], 05/17/2023 19:42:08 05/17/20 23 05/17/2023 cultu re, urine Specific [place] 1.005 Not Available [facility] mary kate [address], [place], [address], 05/17/2023 19:42:08 05/17/20 23 05/17/2023 cultu re, urine Ketone normal Not Available [facility] [address], [place], [address], 05/17/2023 19:42:08 05/17/20 23 05/17/2023 cultu re, urine Bilirubin normal Not Available [facility] [address], [place], [address], 05/17/2023 19:42:08 05/17/20 23 05/17/2023 cultu re, urine Glucose normal Not Available [facility] [address], [place], [address], 05/17/2023 19:42:08 05/17/20 23 05/17/2023 cultu re, urine Appearance normal Not Available [facility] rhonda [address], [place], [address], 05/17/2023 19:42:08 05/17/20 23 05/17/2023 cultu re, urine Color normal Not Available [facility] [address], [place], [address], 05/17/2023 19:42:08 05/03/20 24 05/03/2024 IMAGE GUIDE D PAP AND HPV REGAR DLESS image guided Pap, HPV regardless of Pap result SEE RESULT S BELOW CASE REPOR T: Cytol ogy Gynec ologi irineo Repor t Case: [id number] Autho vince viramontes Provi meir: Sebastian dominguez, Salo , ANP, DRY MILL OPERATOR Colle cted: 05/03 1111 Order ing Locat ion: [place] Patho logy Recei berry: 05/04 0720 First Scree n: Ma, Ebenezer, CT Speci men: Scree milo Pap - Image d, Cervi x STATE MENT OF ADEQU ACY: Satis facto ry for evalu ation Trans forma tion zone compo nent prese nt ----- ----- ----- ----- ----- ----- ----- ----- ----- ----- ----- ----- ----- ----- ----- ----- ----- ---- FINAL DIAGN OSIS: Negat deanna for Intra epith elial Leserik stover or Brionna smith (NIL) . Elect skylar cole by Ebenezer Bonilla, GEOVANNY on 05/09 at 2:07 PM ----- ----- ----- ----- ----- ----- ----- ----- ----- ----- ----- ----- ----- ----- ----- ----- ----- ---- HPV RESUL TS: HPV mRNA E6/E7 : No HPV mRNA Detec peggy NOTE: This high risk HPV mRNA assay detec ts fourt een high- risk HPV types (16, 18, 31, 33, 35, 39, 45, 51, 52, 56, 58, 59, 66, 68) witho ut diffe renti ation . COMME NT: This speci men was revie wed by a Cytot echno logis t and/o r Patho logis t (as indic ated in this repor t) after evalu ation using the Thinp rep Imagi ng Syste m. CLINI IRINEO INFOR MATIO N: Menst rual Statu s: LMP (if appli cable ): Clini irineo Histo ry/Pr eviou s Pap: Type of Neopl hattie (if appli cable ): Signi luc t Clini irineo Findi ngs: Other Histo ry: Hormo rancho (if appli cable ): PAP EDUCA JACKI L NOTE: The Pap Test is a scree milo test with an inher ent false negat deanna rate. Liqui d-bas ed sampl ing may decre ase, but will not elimi jasper, false negat deanna resul ts. A negat deanna resul t does not precl ude the prese nce and/o r devel opmen t of disea se, since the prese nce of abnor mal cells in the sampl e depen ds on the locat ion of the lesio n and sampl ing techn ique. Deb nued regul ar scree mlio is the best metho d of cance r preve ntion . If repor peggy cytol ogic findi ng do not corre late with physi irineo and/o r histo rical findi ngs, furth er inves tigat ion is recom anna d, as clini teresa warra nted. Not Available [facility] (Lab) [address], [place], [address], 05/09/2024 15:11:43 04/20/20 21 04/20/2021 MAMMO , scree milo, bilat eral No observ ation record ed. ADRIENNE [facility] [address], [place], [address], 05/04/2021 10:25:54 04/20/2004/20/2021 MAMMO , scree milo, bilat eral No observ ation record ed. [facility] [address], [place], [address], 04/22/2021 17:04:50 04/27/20 DEXA, axial skele ton + verte bral fract ure asses sment No observ ation record ed. ADRIENNE Quiñonez MD [address], [place], [address], 05/01/2021 18:29:11 05/15/20 21 05/15/2021 MAMMO , diagn ostic , unila teral No observ ation record ed. pamella [facility] [address], [place], [address], 05/21/2021 15:55:05 05/15/20 21 05/15/2021 MAMMO , diagn ostic , unila teral No observ ation record ed. [email or web address] [facility] [address], [place], [address], 05/26/2021 14:06:46 05/28/20 21 05/15/2021 MAMMO , diagn ostic , unila teral No observ ation record ed. [email or web address] [facility] [address], [place], [address], 06/01/2021 16:20:40 04/29/20 22 04/29/2022 MAMMO , scree milo, bilat eral No observ ation record ed. [facility] [address], [place], [address], 05/06/2022 19:50:55 05/03/20 24 07/08/2023 DEXA, axial skele ton + verte bral fract ure asses sment No observ ation record ed. [email or web address], [place], [address], 05/04/2024 03:06:40 05/03/20 24 07/08/2023 MAMMO , scree milo, bilat eral No observ ation record ed. [address], [place], [address], 05/04/2024 13:33:51 Result Notes Documentation Provider Name and Address Organization Details Recorded Time Mammo, Diagnostic, Unilateral : 05-21-21: pt aware. pt pcp called her with the results and pt is scheduled to have a Biopsy with radiology dept at [facility]. pt told would like a copy of the pathology report for her file. Also, highly recommend getting a apt with a breast specialist to review over the pathology and images to determine follow up and or treatment is needed. pt understands. gilda winters [place] - [facility] 05/26/2021 14:06:46 Biopsy, Breast : procedure and pathology copy for file. ordered by PCP. Tesfaye Chandan best [facility] 06/01/2021 17:00:29 Problems Name Problem SNOMED Code Status Onset Date Resolution Date Notes Provider Name and Address Organization Details Recorded Time Urinary tract infectio us disease 06014338 Completed 201802/06/2021 Urinary tract infection , site not specified ;Practice ID: 0001 Melyssa Crocker [facility] 11:18:24 Strictur e of vulva 75401332 Completed 201802/06/2021 Atrophy of vulva;Pra ctice ID: 0001 [facility] 11:18:[address] Concept Completed 201702/06/2021 Well woman check w/o abnormal finding;R ecorded Elsewhere : No Locati on: [facility] So urce: EHR Chron ic: N Practic e ID: 0001 Bill able Time: 08:45:00 AM [facility] 11:18:18 Screenin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 Domestic Partner Phone Father Name Commercial Mortgage Broker Status 11/30/19 20 1 CLOSED Fetus Data First Name Last Name Admitted to NICU Weight (g) Sex Living Outcome Pediatric Complications Fetus ID Race Codes Race Delivery Type M 1646 Vaginal Delivery Bird Calculation Initial Bird Date Initial Exam Date Initial Exam Provider Initial Ultrasound Date Last Menstrual Period Date Ultra Sound Weeks Gestation 0 Eighteen To Twenty Week Ibrd Update Ultra Sound Date Fundal Height At Umbil Quickening Date Ultra Sound Latest Weeks Gestation Final Bird Confirmed By Final Bird Confirmed Date Final Bird Date Ultra Sound Latest Days Gestation 0 0 Menstrual History Last Menstrual Date Menses Monthly On Bcp Conception Prior Menses Frequency Hcg Plus Date Menarche Onset Age Delivery Information Delivery Date Delivery Type Labor Anesthesia Weeks Gestation Incision Type Labor Labor Length Hrs Delivered By Post Complications Tubal Sterilization Discharge Date Comments 4 Discharge Information Feeding Method Contraceptive Method Maternal HG B and HCT Levels Ob Episode Information Episode Created Date Number of Fetuses Patient Bloodtype Patient rh Status Prepregnancy Weight lbs Domestic Partner Domestic Partner Phone Father Name Commercial Mortgage Broker Status 11/30/19 20 1 CLOSED Fetus Data First Name Last Name Admitted to NICU Weight (g) Sex Living Outcome Pediatric Complications Fetus ID Race Codes Race Delivery Type M 1644 Vaginal Delivery Bird Calculation Initial Bird Date Initial Exam Date Initial Exam Provider Initial Ultrasound Date Last Menstrual Period Date Ultra Sound Weeks Gestation 0 Eighteen To Twenty Week Bird Update Ultra Sound Date Fundal Height At Umbil Quickening Date Ultra Sound Latest Weeks Gestation Final Bird Confirmed By Final Bird Confirmed Date Final Bird Date Ultra Sound Latest Days Gestation 0 0 Menstrual History Last Menstrual Date Menses Monthly On Bcp Conception Prior Menses Frequency Hcg Plus Date Menarche Onset Age Delivery Information Delivery Date Delivery Type Labor Anesthesia Weeks Gestation Incision Type Labor Labor Length Hrs Delivered By Post Complications Tubal Sterilization Discharge Date Comments 6 Discharge Information Feeding Method Contraceptive Method Maternal HG B and HCT Levels Ob Episode Information Episode Created Date Number of Fetuses Patient Bloodtype Patient rh Status Prepregnancy Weight lbs Domestic Partner Domestic Partner Phone Father Name Commercial Mortgage Broker Status 11/30/19 20 1 CLOSED Fetus Data First Name Last Name Admitted to NICU Weight (g) Sex Living Outcome Pediatric Complications Fetus ID Race Codes Race Delivery Type F 1645 Vaginal Delivery Bird Calculation Initial Bird Date Initial Exam Date Initial Exam Provider Initial Ultrasound Date Last Menstrual Period Date Ultra Sound Weeks Gestation 0 Eighteen To Twenty Week Bird Update Ultra Sound Date Fundal Height At Umbil Quickening Date Ultra Sound Latest Weeks Gestation Final Bird Confirmed By Final Bird Confirmed Date Final Bird Date Ultra Sound Latest Days Gestation 0 0 Menstrual History Last Menstrual Date Menses Monthly On Bcp Conception Prior Menses Frequency Hcg Plus Date Menarche Onset Age Delivery Information Delivery Date Delivery Type Labor Anesthesia Weeks Gestation Incision Type Labor Labor Length Hrs Delivered By Post Complications Tubal Sterilization Discharge Date Comments 3 Discharge Information Feeding Method Contraceptive Method Maternal HG B and HCT Levels
--- OUTSIDE RECORDS SUMMARY | 2024-08-14 09:14 | XMS_ITS | Continuity of Care Document ---
Author Name [facility] Organization [facility] Care Team Providers Care Delivery Department Supervisor Name Role Phone [facility] Unavailable Unavailable Problems Combined list of problems from Department of Defense and Veterans [facility] facilities. It does not include entries that were removed or entered in error. Problem Status Onset Date Problem Type Date of Resolution Comments Source Diagnosis: ICD-10-CM Z63.79 Other stressful life events affecting family and household Active Diagnosis [facility] Encounters Combined list of: 1) Encounters from Department of Veterans Affairs facilities going back up to thelast 18 months. 2) Encounters from the Department of [facility] facilities going back up to 280 months. Location Location Details Encounter Type Encounter Number Reason For Visit Attending Provider ADM Date DC Date Status Disposition Source [facility] HL BHV ASSMT/REAS SESSMENT [id number] Diagnos is: ICD-10- CM Z63.79 Other stressf ul life events affecti ng family and househo ld
SURAJ AGUAYO 08/16 [facility] Outpatient Encounter [id number] MINDI EPSTEIN 09/07 [facility] N
--- OUTSIDE RECORDS SUMMARY | 2024-08-14 09:14 | XMS_ITS | CONTINUITY OF CARE DOCUMENT ---
Author Name cory ray Address Unknown Organization [facility] Address [address] [place] [address] Phone [phone] Care Team Providers Care Home Stager Name Role Phone Capo SINGLETARY, Dulce Unavailable INSURANCE PROVIDERS Payer name Policy type / Coverage type [place] red democrat [place] [facility] [id number] Other [id number]
--- OUTSIDE RECORDS SUMMARY | 2024-08-14 09:14 | XMS_ITS | Referral Summary ---
Author Organization [facility] Address [address] [place] [address] Care Team Providers Care Conveyor Man Name Role Phone Marco Connor MD Primary Care Provider [phone] Encounters Date Type Department Care Team Description 05/14/2024 11:30 AM MARINE MACHINIST Office Visit [facility] [address] [place] [address] Kasandra Ferguson NP Upper respiratory tract infection, unspecified type (Primary Dx); Sore throat from Last 3 Months Allergies No known active allergies Medications alendronate [...] on file Legal Sex Female 3:58 PM MARINE MACHINIST Gender Identity Female 06/15/2021 6:36 PM MARINE MACHINIST Sexual Orientation Straight 06/15/2021 6: 36 PM MARINE MACHINIST Last Filed Vital Signs Vital Sign Reading Time Taken Comments Blood Pressure 120/74 05/14/2024 11:21 AM MARINE MACHINIST Pulse 96 05/14/2024 11:21 AM MARINE MACHINIST Temperature 37 ??C (98.6 ??F) 05/14/2024 11:21 AM MARINE MACHINIST Respiratory Rate 18 02/12/2024 9:16 AM CDT Oxygen Saturation 97% 05/14/2024 11:21 AM MARINE MACHINIST Inhaled Oxygen Concentration - - Weight 67.1 kg (148 lb) 05/14/2024 11:21 AM MARINE MACHINIST Height 165.1 cm (5' 5 ) 05/14/2024 11:21 AM MARINE MACHINIST Body Mass Index 24.63 05/14/2024 11:21 AM MARINE MACHINIST Plan of Treatment Not on file Procedures Procedure Name Priority Date/Time Associated Diagnosis Comments POC INFLUENZA A/B, COVID-19 ANTIGEN Routine 05/14/2024 11:48 AM MARINE MACHINIST Upper respiratory tract infection, unspecified type POCT RAPID STREP Routine 05/14/2024 11:3 8 AM MARINE MACHINIST Sore throat from Last 3 Months Results * POC Influenza A/B, COVID-19 antigen (05/14/2024 11:48 AM MARINE MACHINIST) Pathologist [facility] Influenza A Ag, POC Negative Negative [facility] Influenza B Ag, POC Negative Negative [facility] COVID-19 Ag POC Presumptive Negative Presumptive Negative, Invalid [facility] Nasal 05/14/2024 11:4 8 AM MARINE MACHINIST us Kasandra Ferguson CASINO ASSISTANT MANAGER POINT OF CARE TEST ORDERABLES Fi nal Result [facility] [address] [place] [address], [facility] * POCT rapid strep A (05/14/2024 11:38 AM MARINE MACHINIST) Rapid Strep A, POC Negative Negative Swab 05/14/2024 11:3 8 AM MARINE MACHINIST Kasandra Ferguson CASINO ASSISTANT MANAGER POINT OF CARE TEST ORDERABLES Fi nal Result from Last 3 Months Insurance [facility] [employer] * Guarantor: Kecia Baca Account Type Relation to Patient Date of Phone Billing Address Personal/Family Self [address] [place] [address] [facility] [employer] Care Teams Conveyor Man Relationship Specialty Start Date End Date Marco Connor MD PCP - General Family Practice 02/12/24
--- OUTSIDE RECORDS SUMMARY | 2024-08-14 09:14 | XMS_ITS | Encounter Summary ---
Author Organization [facility] Address [address] [place] [address] Care Team Providers Care Policy Analyst Name Role Phone Unavailable Primary Care Provider Unavailabl e Encounter Details Date Type Department Care Team (Late st Contact Info) Description 11/14/2019 Lab Requisition [facility] Care DermPath Lab [address] [facility] [address] [facility], [facility] [place] [address] Jensen Middleton MD [address] [place] [address] Social History Tobacco Use Types Packs/Day Years Used Date Smoking Tobacco: Never Assessed Sex and Gender Information Value Date Recorded Sex Assigned at Not on file Gender Identity Not on file Sexual Orientation Not on file documented as of this encounter Plan of Treatment Not on file documented as of this encounter Procedures Procedure Name Priority Date/Time Associated Diagnosis Comments DERMATOPATHOLOGY Routine 11/13/2019 12:0 0 AM CDT documented in this encounter Results * DERMATOPATHOLOGY (11/13/2019 12:00 AM CDT) Case Report Dermatopathology Report ? Case: [id number] ? Authorizing Provider: ??Jensen Middleton MD ?Collected: ? 11/13/2019 12:00 AM ? Ordering Location: ? [facility] DermPath Lab ?Received: ?11/14/2019 12:31 PM ? Pathologist: ? Trish Wang MD ? Specimen: ?Skin, right lower paraspinal back ? 0 4:34 PM CDT DERMATOPATHOLOGY LABORATORY Final Diagnosis Specimen A. SKIN, right lower paraspinal back: LENTIGINOUS MELANOCYTIC NEVUS, COMPOUND TYPE, IRRITATED AND INFLAMED (COMPOUND MELANOCYTIC NEVUS WITH ARCHITECTURAL DISORDER) (D22.5) 0 4:34 PM CDT DERMATOPATHOLOGY LABORATORY Clinical History R/O dys nevus. 0 4:34 PM CDT DERMATOPATHOLOGY LABORATORY Gross Description Specimen A: Received is one formalin filled container labeled with the patient's name and designated right lower paraspinal back. The specimen consists of a shave biopsy measuring [id number]. Jar 0. 0 4:34 PM CDT DERMATOPATHOLOGY LABORATORY Microscopic Description Specimen A. SKIN, right lower paraspinal back: This is a compound nevus. There is melanin pigment in the stratum corneum. There is architectural disorder characterized by a lentiginous proliferation of melanocytes between irregular nests of cells along the dermal-epidermal junction, highlighted by MART-1/Melan-A immunohistochemical staining. There is underlying fibroplasia of the papillary dermis. The intradermal component is bland appearance and matures with depth. There is a lymphohistiocytic infiltrate within the dermis. (Compound Virgil's Nevus or Compound Dysplastic Nevus) 0 4:34 PM CDT DERMATOPATHOLOGY LABORATORY Disclaimer An external and internal positive and negative controls are appropriate for the histochemical, immunohistochemical and immunofluorescence stain(s) in this case (if any), except where stated explicitly. The performance characteristics of the stain(s) cited in this report were developed and its performance characteristic determined by the Dermatopathology Laboratory at [facility], directed by Dr. Yuliana Wang. These tests need not be, and therefore are not, approved by the [place] Food and Drug Administration. The tests are used for clinical purposes. Billing Codes Specimen Charges Stain Charges 37379 1 29410 1 0 4:34 PM CDT DERMATOPATHOLOGY LABORATORY Embedded Images 0 4:34 PM CDT DERMATOPATHOLOGY LABORATORY Pathology/Cytolog y TISSUE SPECIMEN FROM SKIN / Unknown 11/13/2019 11/14/2019 12:31 PM CDT Jensen Middleton MD LAB - PATHOLOGY/CYTO LOGY ORDERABLES DERMATOPATHOLOGY LABORATORY [facility] - Department of Dermatology [address] [facility] [place] [address], [facility] [phone] documented in this encounter Visit Diagnoses Not on filedocumented in this encounter
--- OUTSIDE RECORDS SUMMARY | 2024-08-14 09:14 | XMS_ITS | Encounter Summary ---
Author Organization [facility] Address [address] [place] [address] Care Team Providers Care Supervisor Operations Name Role Phone Unavailable Primary Care Provider Unavailabl e Encounter Details Date Type Department Care Team (Late st Contact Info) Description 02/08/2024 Lab Requisition [facility] - DermPath Lab [address] [facility] [place] [id number] Jensen Middleton MD [address] [address] Social History Tobacco Use Types Packs/Day Years Used Date Smoking Tobacco: Never Sex and Gender Information Value Date Recorded Sex Assigned at Not on file Gender Identity Not on file Sexual Orientation Not on file documented as of this encounter Plan of Treatment Not on file documented as of this encounter Procedures Procedure Name Priority Date/Time Associated Diagnosis Comments DERMATOPATHOLOGY Routine 02/07/2024 12:0 0 AM CDT documented in this encounter Results * DERMATOPATHOLOGY (02/07/2024 12:00 AM CDT) Case Report Dermatopathology Report ? Case: [id number] ? Authorizing Provider: ??Jensen Middleton MD ?Collected: ? 02/07/2024 12:00 AM ? Ordering Location: ? [facility] - ??Received: ?02/09/2024 06:13 AM ? DermPath Lab ? Pathologist: ? Elizabeth Floyd MD ? Specimen: ?Skin, right lower buttock ? 4 1:41 PM CDT DERMATOPATHOLOGY LABORATORY Final Diagnosis Specimen A. SKIN, right lower buttock: MALIGNANT MELANOMA, SUPERFICIAL SPREADING TYPE. BRESLOW THICKNESS 0.3 MM, VIRGIL LEVEL II NOT PRESENT AT MARGIN (C43.59) Requires the attention of the treating physician. 4 1:41 PM T DERMATOPATHOLOGY LABORATORY Clinical History R/O dysplastic nevus 4 1:41 PM CDT DERMATOPATHOLOGY LABORATORY Gross Description Specimen A: Received is one formalin filled container labeled with the patient's name and designated right lower buttock. The specimen consists of a shave biopsy measuring [id number] mm. Jar 0. 4 1:41 PM CDT DERMATOPATHOLOGY LABORATORY Microscopic Description Specimen A. SKIN, right lower buttock: There is a proliferation melanocytes distributed in an irregular pattern singly and in nests at all levels of the epidermis. In the dermis there are single scattered melanocytes with atypical nuclei and ample cytoplasm. This lesion is not present at the margin of the specimen. The hematoxylin and eosin stain is reviewed; immunohistochemical stains are performed to further characterize this process. Mart1/Melan-A highlights the broad nature of this lesion. PRAME displays overexpression (3-4+), including scattered dermal cells. 4 1:41 PM CDT DERMATOPATHOLOGY LABORATORY Disclaimer An external and internal positive and negative controls are appropriate for the histochemical, immunohistochemical and immunofluorescence stain(s) in this case (if any), except where stated explicitly. The performance characteristics of the stain(s) cited in this report were developed and its performance characteristic determined by the Dermatopathology Laboratory at [facility], directed by Dr. Yuliana Wang. These tests need not be, and therefore are not, approved by the [place] Food and Drug Administration. The tests are used for clinical purposes. Billing Codes Specimen Charges Stain Charges 96656 1 64647 63212 1 1 4 1:41 PM CDT DERMATOPATHOLOGY LABORATORY Embedded Images 4 1:41 PM CDT DERMATOPATHOLOGY LABORATORY Synoptic Report INVASIVE MELANOMA OF THE SKIN: Biopsy INVASIVE MELANOMA OF THE SKIN: BIOPSY - A 8th Edition - Protocol posted: 06/22/2023 SPECIMEN ?? Procedure: ?Biopsy, shave ?? Specimen Laterality: ?Right TUMOR ?? Tumor Site: ?Skin of lower limb and / or hip: lower buttock ?? Histologic Type: ?Low-cumulative sun damage (CSD) melanoma (including superficial spreading melanoma) ?? Maximum Tumor (Breslow) Thickness (Millimeters): ?0.3 mm ?? Ulceration: ?Not identified ?? Anatomic (Virgil) Level: ?II (melanoma present in but does not fill and / or expand papillary dermis) ?? Mitotic Rate: ?None identified ?? Microsatellite(s): ?Not identified ?? Lymphatic and / or Vascular Invasion: ?Not identified ?? Neurotropism: ?Not identified ?? Tumor-Infiltrating Lymphocytes: ?Not identified ?? Tumor Regression: ?Not identified MARGINS ?? Margin Status for Invasive Melanoma: ?All margins negative for invasive melanoma ?? Margin Status for Melanoma In Situ: ?All margins negative for melanoma in situ pTMN CLASSIFICATION (AJCC 8th Edition) ?? Reporting of pT category is based on information available to the pathologist at the time the report is issued. As per the AJCC (Chapter 1, 8th Ed.) it is the managing physician? s responsibility to establish the final pathologic stage based upon all pertinent information, including but potentially not limited to this pathology report. ?? pT Category: ?pT1a ?? Comment(s): ?This case was reviewed by Dr. Odalis Floyd, who agrees. 1:41 PM CDT DERMATOPATHOLOGY LABORATORY Pathology/Cytolog y TISSUE SPECIMEN FROM SKIN / Unknown 02/07/2024 02/09/2024 6:13 AM CDT Jensen Middleton MD LAB - PATHOLOGY/CYTO LOGY ORDERABLES DERMATOPATHOLOGY LABORATORY [facility] - Department of Dermatology [facility] Medicine [address] [place] [address], [address] [phone] documented in this encounter Visit Diagnoses Not on filedocumented in this encounter
== END 2024-08-14 08:52 | disposition home or self-care (01) ==
LOC: ANHIMG 08:53
PROVIDERS: PCP Family Medicine; Visit Provider Student in an Organized Health Care Education/Training Program
DX: Z12.31 Encounter for screening mammogram for malignant neoplasm of breast (principal)
CPT/HCPCS: 77063; 77067